=== PATIENT | female | born 1950 | race Caucasian/White ===

== ENCOUNTER 2021-05-12 11:44 | Emergency (ER) | payer OTHER ==
[~2021-05-12] VITALS: Ht 170.2 cm; Wt 82.6 kg
[2021-05-12] MEDS ORDERED: METFORMIN HCL500 M3 PO (11:54)
[2021-05-12] MEDS ORDERED: CRESTOR5 MG PO (11:55)
[2021-05-12] MEDS ORDERED: OMEPRAZOLE40 MG PO (11:55)
[2021-05-12] MEDS ORDERED: TESSALON PERLE100 M1 PO ×2 (12:50→12:57)
[2021-05-12 13:17] VITALS: BP 134/58
== END 2021-05-12 13:17 | disposition home or self-care (01) ==
LOC: M.ERS 11:44
DX: U07.1 COVID-19 (principal); E11.9 Type 2 diabetes mellitus without complications; Z79.899 Other long term (current) drug therapy